=== PATIENT | male | born 1945 ===

== ENCOUNTER 2018-01-01 06:40 | Inpatient (IN) | payer OTHER ==
--- NOTE | 2017-12-27 22:48 | GHP ---
[f rep st] PREOP HISTORY AND PHYSICAL DATE OF ADMISSION: 01/01/2018 CURRENT COMPLAINT: Right knee pain. HISTORY OF PRESENT ILLNESS: The patient is a 72-year-old male, who has previously undergone a right total knee replacement. Recent x-rays revealed lucency at the tibial component. He wishes to have s urgery in order to resolve the problem. ALLERGIES: He lists no known drug allergies. CURRENT MEDICATIONS: Include atorvastatin, carvedilol, cefepime, citalopram, hydrochlorothiazide, le vothyroxine, lisinopril. PRIOR MEDICAL PROBLEMS: Include high cholesterol and thyroid issues. PRIOR SURGERY: Include pacemaker, Achilles tendon repair, thyroid surgery, colonoscopy, and a right total knee arthroplasty. SOCIAL HISTORY: He is a former smoker. He is a social drinker. PHYSICAL EXAM: EYES: His pupils equal, round, and reactive to light. CHEST: Clear to auscultation . HEART: Regular rate and rhythm. ABDOMEN: Soft. EXTREMITIES: He has some tenderness around the and effusion noted to the knee. He has 5/5 strength and stable to varus, valgus stresses . ASSESSMENT/PLAN: Patient is status post right total knee replacement failure. plan is to take him to the operating room to undergo a right total knee revision. /[id number]/MODL
[~2018-01-01 06:40] MED LIST: ROPIVACAINE 0.2% 80 MG, EPINEPHrine 0.2 MG, KETOROLAC TROMETHAMINE 30 MG, morphINE 10 M... IU ONE; TRANEXAMIC ACID 3,000 MG in NS (SYRINGE) 50 ML IRR ONE
[2018-01-01] MEDS ORDERED: PREGABALIN 150 MG CAP PO ONE (07:16)
[2018-01-01] MEDS ORDERED: ceFAZolin 2 GM/DEXTROSE 100 ML IV ONE (07:16)
[2018-01-01] MEDS ORDERED: ACETAMINOPHEN 500 MG TAB PO ONE (07:16)
--- NOTE | 2018-01-01 07:16 | PDHPUP ---
History & Physical Update H&P update statement: This history and physical update is based on an assessment of the patient which was completed after admission or registration (within 24 hours), but prior to the surgery/procedure. H&P update: H&P reviewed & patient examined, no change in patient's condition since H&P completed
[2018-01-01] MEDS ORDERED: LR 1,000 ML IV ONE (07:17)
[2018-01-01] MEDS ORDERED: LIDOCAINE 1% 2 ML INJ ID PRN (07:17)
[2018-01-01] MEDS ORDERED: TRANEXAMIC ACID 3,000 MG/50 ML BAG IRR ONE (07:48)
[2018-01-01] MEDS ORDERED: BACITRACIN 50,000 UNITS/10 ML SYR IRR ONE (07:48)
[2018-01-01] MEDS ORDERED: POLYMYXIN B SULFATE 500,000 UNIT/10 ML SYR IRR ONE (07:48)
--- NOTE | 2018-01-01 08:31 | PDANEPAE ---
ANE History of Present Illness failed knee device, here for revision TKA ANE Past Medical History - Cardiovascular History Hx Hypertension: Yes Hx Arrhythmias: Yes Hx Chest Pain: No Hx Coronary Artery / Peripheral Vascular Disease: No Hx CHF / Valvular Disease: No Hx Palpitations: No - Pulmonary History Hx COPD: No Hx Asthma/Reactive Airway Disease: No Hx Recent Upper Respiratory Infection: No Hx Oxygen in Use at Home: No Hx Sleep Apnea: No Sleep Apnea Screening Result - Last Documented: Positive - Neurologic History Hx Cerebrovascular Accident: No Hx Seizures: No Hx Dementia: No - Endocrine History Hx Diabetes: No - Renal History Hx Renal Disorders: No - Liver History Hx Hepatic Disorders: No - Neurological & Psychiatric Hx Hx Neurological and Psychiatric Disorders: No - Cancer History Hx Cancer: No - Congenital Disorder History Hx Congenital Disorders: No - GI History Hx Gastrointestinal Disorders: No - Other Health History Other Health History: none - Chronic Pain History Chronic Pain: No - Surgical History Prior Surgeries: achilles rupture with infection ANE Review of Systems Review of Systems: - Exercise capacity METS (RN): 4 METS - Pacemaker Pacemaker Type: Permanent Pacer/Defib Pacemaker Forging Die Finisher: RotoPop Pacemaker Model: Pacer L321, Guidant lead 4456, Guidant lead 4469 ANE Patient History - Allergies Allergies/Adverse Reactions: No Allergies [NKDA] Allergy (Verified 01/14/10 10:44) - Home Medications Home Medications: Aspirin [Aspirin 81mg (*)] 81 mg PO HS 12/27/17 [Last Taken 5 Days Ago ~12/27/17 ] Atorvastatin Calcium [Lipitor 40 mg (*)] 40 mg PO HS 12/27/17 [Last Taken 2 Days Ago ~12/30/17] Carvedilol [Coreg (*)] 25 mg PO BIDMEAL 12/27/17 [Last Taken 1 Day Ago ~12/31/17 ] Citalopram [CeleXA] 20 mg PO DAILY 12/27/17 [Last Taken 1 Day Ago ~12/31/17] Diclofenac Sodium [Voltaren 75 MG (*)] 75 mg PO BID 12/27/17 [Last Taken Unknown ] Glucosamine/Chondroitin [Glucosamine/Chondroitin (*)] 1 each PO BID 12/27/17 [ Last Taken 5 Days Ago ~12/27/17] Hydrochlorothiazide [HCTZ (*)] 12.5 mg PO DAILY 12/27/17 [Last Taken 1 Day Ago ~ 12/31/17] Levothyroxine [Synthroid 100 mcg (*)] 100 mcg PO HS 12/27/17 [Last Taken 2 Days Ago ~12/30/17] Lisinopril 30 mg PO DAILY 12/27/17 [Last Taken 1 Day Ago ~12/31/17] Multivitamins [Multivitamin (*)] 1 each PO DAILY 12/27/17 [Last Taken 5 Days Ago ~12/27/17] - NPO status NPO Since - Liquids (Date): 12/31/17 NPO Since - Liquids (Time): 18:00 NPO Since - Solids (Date): 12/31/17 NPO Since - Solids (Time): 18:00 - Anes Hx Anes Hx: no prior problems - Smoking Hx Smoking Status: Former smoker - Alcohol Use Alcohol Use: Occasionally - Family Anes Hx Family Anes Hx: none Family Hx Anesthesia Complications: none ANE Labs/Vital Signs - Vital Signs Blood Pressure: 82/60 Heart Rate: 80 Respiratory Rate: 18 O2 Sat (%): 92 Height: 177.8 cm Weight: 108.862 kg ANE Physical Exam - Airway Neck exam: FROM Mallampati Score: Class 2 Mouth exam: dentures - Pulmonary Pulmonary: no respiratory distress, clear to auscultation - Cardiovascular Cardiovascular: regular rate and rhythym, no murmur, rub, or gallop - ASA Status ASA Status: III ANE Anesthesia Plan Anesthesia Plan: GA w LMA, GA with mask, spinal Regional Anesthesia: single shot NB, adductor canal FNB
[2018-01-01] MEDS ORDERED: MIDAZOLAM 2 MG/2 ML VIAL IVP ONE (08:34)
[2018-01-01] MEDS ORDERED: PROPOFOL/EMULSION 500 MG/50 ML BOTTLE IV ONE ×5 (08:42→13:28)
[2018-01-01] MEDS ORDERED: PHENYLEPHRINE HCL 100 MCG/ML SYR ONE (09:13)
[2018-01-01] MEDS ORDERED: LIDOCAINE 2% JELLY 5 ML TUBE ONE (09:17)
[2018-01-01] MEDS ORDERED: CALCIUM CHLORIDE 1 GM/10 ML INJ ONE (09:45)
[2018-01-01] MEDS ORDERED: THROMBIN (BOVINE) 5,000 UNIT VIAL TP ONE (09:45)
[2018-01-01] MEDS ORDERED: clonIDINE 1 MG/10 ML VIAL EP ONE (09:52)
[2018-01-01] MEDS ORDERED: ROPIVACAINE HCL 150 MG/30 ML INJ ONE (09:52)
[2018-01-01] MEDS ORDERED: ceFAZolin 1 GM/5 ML SYR ONE (11:26)
[2018-01-01] MEDS ORDERED: HYDROGEN PEROXIDE 236 ML BOTTLE TP ONE (14:21)
[2018-01-01] MEDS ORDERED: PROMETHAZINE HCL 25 MG SUPPR PR PRN (14:32)
[2018-01-01] MEDS ORDERED: MAGNESIUM HYDROXIDE 30 ML UDCUP PO PRN (14:32)
[2018-01-01] MEDS ORDERED: oxyCODONE IR 5 MG TAB PO PRN ×2 (14:32→14:42)
[2018-01-01] MEDS ORDERED: diphenhydrAMINE 25 MG CAP PO PRN (14:32)
[2018-01-01] MEDS ORDERED: PROMETHAZINE HCL 25 MG/ML INJ IVP PRN (14:32)
[2018-01-01] MEDS ORDERED: DIPHENOXYLATE/ATROPINE LOMOTIL 1 TAB PO PRN (14:32)
[2018-01-01] MEDS ORDERED: TAPENTADOL HCL 50 MG TAB PO PRN (14:32)
[2018-01-01] MEDS ORDERED: POLYETHYLENE GLYCOL 3350 17 GM PKT PO PRN (14:32)
[2018-01-01] MEDS ORDERED: BISACODYL 10 MG SUPP PR PRN (14:32)
[2018-01-01] MEDS ORDERED: CYCLOBENZAPRINE 10 MG TAB PO PRN (14:32)
[2018-01-01] MEDS ORDERED: METOCLOPRAMIDE 10 MG/2 ML VIAL IVP PRN (14:32)
[2018-01-01] MEDS ORDERED: LACTULOSE 20 GM/30 ML UDCUP PO PRN (14:32)
[2018-01-01] MEDS ORDERED: ONDANSETRON 4 MG/2 ML VIAL IVP PRN ×2 (14:32→14:42)
[2018-01-01] MEDS ORDERED: TEMAZEPAM 15 MG CAP PO PRN (14:32)
[2018-01-01] MEDS ORDERED: ONDANSETRON DISINTEGRATING 4 MG TAB PO PRN (14:32)
--- NOTE | 2018-01-01 14:32 | POSTOPPROG ---
Post Op Note Date of Operation: 01/01/18 Surgeon: Ariadna Flores Locomotive Inspector: coltrain Anesthesia: Spinal Pre-op Diagnosis: r tkr failure Procedure: r tkr revision with JUAN DANIEL Inf/Abcess present in the surg proc area at time of surgery?: No Depth: Deep Incisional (Fascial) EBL: 500-1000
[2018-01-01] MEDS ORDERED: DIAZEPAM 5 MG/ML 1 ML SYR IVP PRN (14:42)
[2018-01-01] MEDS ORDERED: HYDROCODONE/APAP 5/325 TAB PO PRN (14:42)
[2018-01-01] MEDS ORDERED: fentaNYL 100 MCG/2 ML INJ IVP PRN (14:42)
[2018-01-01] MEDS ORDERED: ACETAMINOPHEN 500 MG TAB PO PRN (14:42)
[2018-01-01] MEDS ORDERED: NALOXONE HCL 0.4 MG/ML INJ IVP PRN (14:42)
--- NOTE | 2018-01-01 14:45 | POSTANESTH ---
Post Anesthetic Evaluation Cardiovascular Status: Normal, Stable, Similar to Pre-Op Cond Respiratory Status: Normal, Stable, Similar to Pre-op Cond. Level of Consciousness/Mental Status: Can Participate in Eval, Alert and Oriented Pain Control: Adequate, Prn Tx Ordered Nausea/Vomiting Control: Adequate, Prn Tx Ordered Complications Possibly Related to Anesthesia: None Noted
[2018-01-01] MEDS ORDERED: PHENYLEPHRINE HCL 100 MCG/ML SYR IVP PRN (14:49)
--- NOTE | 2018-01-01 14:57 | PDMN ---
Medical Necessity Medical necessity: [facility] [place] [facility], knee arthroplasty: inpt for R TKA arthroplasty revision, pt 72 y/o w/prior failed TKA
[2018-01-01] MEDS ORDERED: LR 1,000 ML IV SCH (15:00)
--- NOTE | 2018-01-01 16:21 | GOP ---
[f rep st] OPERATIVE REPORT DATE OF OPERATION: 01/01/2018 SURGEON: Ariadna Flores MD PHYTOCHEMISTRY PROFESSOR: ELIO Valentin, LSA, certified S.[place]., whose presence was medically necessary. ANESTHESIA: Spinal. PREOPERATIVE DIAGNOSIS: Right total knee replacement failure. POSTOPERATIVE DIAGNOSIS: Right total knee replacement failure. PROCEDURE PERFORMED: Right total knee replacement revision with removal of hardware. FINDINGS: INDICATIONS: This is a 72-year-old male, who had previously undergone a right total knee replacement who began to have pain in the knee. X-ray exam revealed lytic changes in his proximal tibia, and CT exam revealed cystic change as well as loosening of the tibial component. He wishes to have surgery in order to resolve the problem. DESCRIPTION OF PROCEDURE: The patient brought to the operating room after the right side had been id entified as the correct side by the patient, nurse, and physician. Once in the operating room, he wa s given a spinal nerve block and he had a tourniquet placed on the upper portion the right thigh. Th e right lower extremity was then sterilely prepped and draped in the usual fashion using GSI solution . Once prepped and draped, the limb was exsanguinated, tourniquet inflated to 250 mmHg. Using his o ld scars, an anterior incision was made 1 handbreadth above and below the patella with sharp dissecti on carried down through the skin and subcutaneous layers. Bleeding was controlled using electrocaute ry. A medial parapatellar incision was made with patella brought laterally, but not everted. He was noted to have abundant amount of synovitis within the knee. Placing thumb pressure on the femoral c omponent revealed it to be loose and therefore attention was turned to the femoral component with fle xible osteotomes used to remove the femoral component which was able to be from its cement mantle in its entirety thereby preserving as much bone as possible. The plastic liner in the tibia was cut at its post and able to be removed in pieces. Attention was t hen turned to the tibia. An abundant amount of dissection had to be done around the tibia as there w as excess bone noted posteriorly and anteriorly eventually being able to get flexible osteotomes frankie g the tibial tray, and the tibia able to be removed in its entirety by it from its cement mantle. The cement was then able to be removed using combination of rongeur, osteotome, and ultrason ic knife. Once everything had been removed, now was noted to have no bone at the lateral cortex of t he tibia and the fracture fixation plate that had been on the lateral side of the tibia no longer was attached to any type of bone at all as there was just a blank wall with no bone for the lateral amy ex. It was noted that the screws were in the way of being able to get an intramedullary corie within t he tibia. Therefore, using an old scar, a 5 cm incision was made with sharp dissection carried down through the skin and subcutaneous layers. Bleeding controlled using electrocautery. Blunt dissection carried d own on the plate and the 2 screws were removed and the plate was able to be removed from within the k nee secondary to there being no bone in the area to block access to the plate. Once completed sequen tial reamers were placed within the tibia up to a size 18 which was noted to fit securely. Trial was placed within the area and noted to fit securely. The bone was removed from the medial portion of t he tibia in order to accommodate cone for revision up to a 61 mm giving a good secure fit. The end o f the bone was then freshened using an oscillating saw. When the components were put together, it wa s a 115 x 18 mm stem with a 61 mm revision metaphyseal porous sleeve from [employer] and a size 4 rotating platform of the tibial tray using revision again from [employer]. The components were put together and t hen placed within the tibia and put into place and then getting a secure fit. Secondary to difficult exposure and tightness within the tissue, it was decided to do multiple trials to see what size plastic would go in thereby being able to put in the correct size plastic and then being able to put the femoral component in place over the top of it. Therefore, after multiple trial s it was found that a size 5, 22.5 mm polyethylene liner fit best. It was therefore placed within e tibial tray. The femur had been prepared using an 18 mm reamer along the shaft and a size 5 femora l trial once noted to be able to fit securely, the distal end of the femur was freshened. The wound was thoroughly irrigated with antibiotic solution, and a size 5 right cemented femoral component had been attached to a 115 x 18 mm stem. With cement placed on the cut surfaces of the bone, the stem wa s able to be put into place. Excess cement removed using [place] elevator. The knee brought to full e xtension under pressurized cement. He was noted to have good stability to varus, valgus, and good ra nge of motion. Joint cocktail was injected in the posterior capsule along the periosteum of the femu r and the tibia, and in the extensor mechanism while the cement was drying. The wound was thoroughly irrigated with Betadine with saline in order to decrease colony count. Once cement had actually hardened, any excess cement was removed using a combination of rongeur and osteo tome. The tourniquet had been deflated at 120 minutes and bleeding had been controlled using electro cautery. Multiple irrigations with Betadine and saline had been performed. The wound was then close d in layers to include 0 Vicryl suture in a [id number] type stitch for the extensor mechanism, 0 Vicryl and 2-0 Vicryl suture used for the subcutaneous layers, and a 3-0 V-Loc suture in a running s ubcuticular stitch used for the skin. The tibial incision for the hardware removal was also closed i n layers using 0 Vicryl suture for the deep fascial layers, 2-0 Vicryl suture for the subcutaneous la yers, and a 3-0 V-Loc suture in a running subcuticular stitch. All incisions were then dressed with Steri-Strips, Xeroform, 4 x 4's, wrapped in Kerlix. Leg was completely undraped in the operating hafsa m, tourniquet removed from the thigh, and an Jaun Pablo wrap placed around the knee. The patient was then t ransferred onto a stretcher and sent to recovery room in good condition. TOURNIQUET TIME: 120 minutes. /[id number]/MODL
[2018-01-01] MEDS: CARVEDILOL 25 MG TAB PO SCH (17:01)
[2018-01-01] MEDS: LIDOCAINE 4%/MENTHOL 1% PATCH TD SCH (17:07)
[2018-01-01] MEDS: KETOROLAC 15 MG/1 ML SDV IVP SCH ×2 (18:18→23:55)
[2018-01-01] MEDS: ACETAMINOPHEN 325 MG TAB PO SCH ×2 (18:19→23:55)
[2018-01-01] MEDS: ceFAZolin 2 GM/DEXTROSE 100 ML IV SCH ×2 (18:23→23:55)
[2018-01-01] MEDS: traMADol 50 MG TAB PO SCH ×2 (18:43→23:55)
[2018-01-01] MEDS: SENNOSIDES/DOCUSATE SODIUM TAB PO SCH (19:54)
[2018-01-01] MEDS: FAMOTIDINE 20 MG TAB PO SCH (19:54)
[2018-01-01] MEDS ORDERED: LEVOTHYROXINE 100 MCG TAB PO SCH (21:00)
[2018-01-01] MEDS ORDERED: ATORVASTATIN CALCIUM 40 MG TAB PO SCH (21:00)
[2018-01-02] MEDS: KETOROLAC 15 MG/1 ML SDV IVP SCH ×2 (06:14→12:02)
[2018-01-02] MEDS: ACETAMINOPHEN 325 MG TAB PO SCH ×2 (06:14→12:00)
[2018-01-02] MEDS: traMADol 50 MG TAB PO SCH ×2 (06:14→12:01)
[2018-01-02] MEDS: FAMOTIDINE 20 MG TAB PO SCH (08:14)
[2018-01-02] MEDS: SENNOSIDES/DOCUSATE SODIUM TAB PO SCH (08:14)
[2018-01-02] MEDS: LIDOCAINE 4%/MENTHOL 1% PATCH TD SCH (08:16)
[2018-01-02] MEDS ORDERED: LISINOPRIL 20 MG TAB PO SCH (09:00)
[2018-01-02] MEDS ORDERED: HYDROCHLOROTHIAZIDE 12.5 MG CAP PO SCH (09:00)
[2018-01-02] MEDS ORDERED: CITALOPRAM 20 MG TAB PO SCH (09:00)
[2018-01-02] MEDS ORDERED: RIVAROXABAN 10 MG TAB PO SCH (09:00)
[2018-01-02] MEDS: CARVEDILOL 25 MG TAB PO SCH (09:55)
--- NOTE | 2018-01-02 10:45 | ASMTCASEMG ---
Living Arrangements What is your living Answers: With Spouse arrangement? Who do you live with? Type Of Residence What kind of residence do Answers: House you live in? Discharge Plan Comments Coordination Status Comments Notes: Pt is a 72 y/o man admitted for a total knee. PT is recommending home w/ outpatient rehab. No needs identified at this time. CM available for changes. Plan: Independent Date Signed: 01/02/2018 10:45 AM Electronically Signed By:BENITA Beltran
[2018-01-02 11:59] VITALS: BP 97/68
--- NOTE | 2018-01-02 14:19 | SOAPPROG ---
[facility] Progress Note Assessment/Plan: Assessment: Jose R is now POD#1 from right total knee revision on 01/01/18. He is doing very well. He has been up with physical therapy and complains of mild pain which is controlled with oral pain medication PE: Dressing clean and dry Extensor mechanism intact NV intact RLE Calf is soft and non-painful to compression Plan:We will plan for patient to be discharged home today. Prescriptions for pain medication and Xarelto were given today. Patient will remain partial weight bearing RLE with the assistance of a walker. Patient will follow up in office in 7-10 days for repeat evaluation and wound check. 01/02/18 14:16 Objective: Vital Signs Temp Pulse Resp BP Pulse Ox 36.6 C 81 15 97/68 L 91 L 01/02/18 11:58 01/02/18 11:58 01/02/18 11:58 01/02/18 11:58 01/02/18 11:58 Laboratory Results 01/02/18 04:42 01/01/18 01/02/18 01/03/18 05:59 05:59 05:59 Intake Total 5170 Output Total 700 800 Balance 0980 -800
--- NOTE | 2018-01-08 13:12 | GDS ---
[f rep st] DISCHARGE SUMMARY CURRENT COMPLAINT: Right knee pain. HISTORY OF PRESENT ILLNESS: Mr. Buckley is a 72-year-old male, who previously had undergone a rig ht total knee arthroplasty, and began to have pain in the knee. X-ray exam reveals lytic changes in the proximal tibia, and CT exam reveals cystic changes, as well as loosening of the tibial component. He wishes to have surgery in order to resolve the problem. HOSPITAL COURSE: Patient brought to the operating room on the day of admission where he underwent a right total knee replacement revision with removal of hardware. Postoperatively, he progressed fairl y quickly with physical therapy and pain control to the point that once he passed his physical therap y milestones, his pain was under control. He was able to be discharged the following day on 01/03/20, with instructions to continue with his physical therapy exercises and return to us in the office for further evaluation. /[id number]/MODL
== END 2018-01-02 15:05 | disposition home or self-care (01) | DRG 470 ==
LOC: OBSVTOIN 06:40 → F3N 06:40
PROVIDERS: ADMIT Orthopaedic Surgery; ATTEND Orthopaedic Surgery
PROC: 0SRC0J9 Replacement of Right Knee Joint with Synthetic Substitute, Cemented, Open Approach (ICD-10-PCS; principal; 2018-01-01 08:30)
DX: T84.032A Mechanical loosening of internal right knee prosthetic joint, initial encounter (principal); I10 Essential (primary) hypertension; Z87.891 Personal history of nicotine dependence
CPT/HCPCS: 97161-GP; 97165-GO; C1713; J0171; J0690; J0735; J1885; J2250; J2270; J2370; J2704; J2795